=== PATIENT | female | born 1995 | race Caucasian/White ===

== ENCOUNTER 2021-08-04 15:13 | Emergency (ER) | payer BC ==
[~2021-08-04] VITALS: Ht 157.5 cm; Wt 86.3 kg
--- NOTE | 2021-08-04 15:45 | PHYS DOC ---
Past History Additional Past Medical Histor: PCOS (ELIAN GALLOWAY DO) Past Medical History: Anxiety, Depression (SANDY THOMAS MD) Past Surgical History: Tonsillectomy, Other Additional Past Surgical Histo: SINUS SURGERY X2; ADNIODECTOMY; D&C WITH POLPECTOMY ON CERVIX (ELIAN GALLOWAY DO) General Adult EDM: Chief Complaint: SUICIDAL IDEATION HPI: HPI: 26-year-old female presents with suicidal ideation. She has been having t houghts of suicide for at least several weeks. These feelings become more persistent in the last week since changing from Lexapro to another medicine. She does not have a specific plan. She has never been hospitalized in the past. She has no previous suicide attempts. She has no medical complaints at this time. Denies fever or chills. (ELIAN GALLOWAY DO) Review of Systems: Review of Systems: Constitutional: Denies fever or chills Eyes: Denies change in visual acuity HENT: Denies nasal congestion or sore throat Respiratory: Denies cough or shortness of breath Cardiovascular: Denies chest pain or edema GI: Denies abdominal pain, nausea, vomiting, bloody stools or diarrhea : Denies dysuria Musculoskeletal: Denies back pain or joint pain Integument: Denies rash Neurologic: Denies headache, focal weakness or sensory changes Endocrine: Denies polyuria or polydipsia Lymphatic: Denies swollen glands Psychiatric: Depression, suicidal ideation (ELIAN GALLOWAY DO) Allergies: Allergies: Allergies Coded Allergies Type Severity Reaction Last Updated Verified Cephalosporins Allergy Unknown 08/04/21 Yes Penicillins Allergy Unknown 08/04/21 Yes clindamycin Allergy Unknown 08/04/21 Yes (ELIAN GALLOWAY DO) Physical Exam: PE: Constitutional: Well developed, well nourished, obese, no acute distress, non- toxic appearance. [] HENT: Normocephalic, atraumatic, bilateral external ears normal, oropharynx moist, no oral exudates, nose normal. [] Eyes: PERRLA, EOMI, conjunctiva normal, no discharge. [] Neck: Normal range of motion, no tenderness, supple, no stridor. [] Cardiovascular: Heart rate regular rhythm, no murmur [] Lungs & Thorax: Bilateral breath sounds clear to auscultation [] Abdomen: Bowel sounds normal, soft, no tenderness, no masses, no pulsatile masses. [] Skin: Warm, dry, no erythema, no rash. [] Back: No tenderness, no CVA tenderness. [] Extremities: No tenderness, no cyanosis, no clubbing, ROM intact, no edema. [] Neurologic: Alert and oriented X 3, normal motor function, normal sensory function, no focal deficits noted. [] Psychologic: Affect flat, judgement normal, mood depressed. [] (ELIAN GALLOWAY DO) Current Patient Data: Vital Signs: Vital Signs Date Time Temp Pulse Resp B/P (MAP) Pulse Ox O2 Delivery O2 Flow Rate FiO2 08/04/21 15:27 99.2 145 20 143/101 (115) 98 Room Air (EILAN GALLOWAY DO) EKG: EKG: [] (ELIAN GALLOWAY DO) Radiology/Procedures: Radiology/Procedures: [] (ELIAN GALLOWAY DO) Heart Score: C/O Chest Pain: N/A Risk Factors: Risk Factors: DM, Current or recent (<one month) smoker, HTN, HLP, family history of CAD, obesity. Risk Scores: Score 0 - 3: 2.5% MACE over next 6 weeks - Discharge Home Score 4 - 6: 20.3% MACE over next 6 weeks - Admit for Clinical Observation Score 7 - 10: 72.7% MACE over next 6 weeks - Early Invasive Strategies (ELIAN GALLOWAY DO) Course & Med Decision Making: Course & Med Decision Making Pertinent Labs and Imaging studies reviewed. (See chart for details) The patient's labs are unremarkable. She is not . Urinalysis negative for infection. She is medically stable for behavioral health evaluation. Behavioral health is evaluating the patient at shift change. I am signing the patient out to Dr. Thomas at 1800 who will determine her disposition. [] (ELIAN GALLOWAY DO) Course & Med Decision Making See Dr. Galloway chart for details. See PAT exam. Pt. keep follow up with counselor and primary. Pt. released with Safety plan. Impression: 1. Suicidal ideation 2. Anxiety 3. Depression 4. Diabetes glucose 275 5. Rapid COVID screen negative (SANDY THOMAS MD) Dragon Disclaimer: Dragon Disclaimer: This electronic medical record was generated, in whole or in part, using a voice recognition dictation system. (ELIAN GALLOWAY DO) Departure Departure: Impression: Primary Impression: Suicidal ideation Referrals: MARY PLUMMER DO (PCP) [place] Disclaimer This chart was dictated in whole or in part using Voice Recognition software in a busy, high-work load, and often noisy Emergency Department environment. It may contain unintended and wholly unrecognized errors or omissions. (SANDY THOMAS MD) Dragon Disclaimer This chart was dictated in whole or in part using Voice Recognition software in a busy, high-work load, and often noisy Emergency Department environment. It may contain unintended and wholly unrecognized errors or omissions. (SANDY THOMAS MD) ELIAN GALLOWAY DO August 04, 2021 15:45 SANDY THOMAS MD August 04, 2021 18:30
[2021-08-04 16:21] LABS: BASO # 0.1 x10^3/uL (0.0-0.2); BASO % 1 % (0-3); EOS # 0.1 x10^3/uL (0.0-0.7); EOS % 1 % (0-3); HEMATOCRIT 43.9 % (36.0-47.0); LYMPH # 3.1 x10^3/uL (1.0-4.8); LYMPH % 43 % (24-48); MEAN CORPUSCULAR HEMOGLOBIN 29 pg (25-35); MEAN CORPUSCULAR HGB CONC 34 g/dL (31-37); MEAN CORPUSCULAR VOLUME 85 fL (79-100); MONO # 0.4 x10^3/uL (0.0-1.1); MONO % 6 % (0-9); NEUT # 3.6 x10^3uL (1.8-7.7); NEUT % 49 % (31-73); PLATELET COUNT 322 x10^3/uL (140-400); RED BLOOD COUNT 5.16 x10^6/uL (3.50-5.40); RED CELL DISTRIBUTION WIDTH 12.9 % (11.5-14.5); WHITE BLOOD COUNT 7.3 x10^3/uL (4.0-11.0)
[2021-08-04 16:30] LABS: CALCIUM 9.3 mg/dL (8.5-10.1); GFR 68.1; POTASSIUM 3.8 mmol/L (3.5-5.1)
[2021-08-04 16:36] LABS: ALBUMIN 3.6 g/dL (3.4-5.0); TOTAL BILIRUBIN 0.8 mg/dL (0.2-1.0); TOTAL PROTEIN 7.1 g/dL (6.4-8.2)
[2021-08-04 16:37] LABS: BACTERIA,URINE FEW /HPF (0-FEW); BARBITURATES NEG (NEG); BENZODIAZEPINES NEG (NEG); CANNABINOIDS NEG (NEG); CLARITY,URINE CLEAR; COCAINE NEG (NEG); COLOR,URINE YELLOW; GLUCOSE,URINE >=1000 mg/dL (NEG); METHADONE NEG (NEG); NITRITE,URINE NEG (NEG); OPIATES NEG (NEG); PHENCYCLIDINE NEG (NEG); RBC,URINE 0 /HPF (0-2); SQUAMOUS EPITHELIAL CELL,UR MOD /LPF; UROBILINOGEN,URINE 0.2 mg/dL (0.2 mg/dL)
[2021-08-04 16:38] LABS: AMPHETAMINE/METHAMPHETAMINE NEG (NEG)
[2021-08-04 19:00] VITALS: BP 136/88
== END 2021-08-04 19:10 | disposition home or self-care (01) ==
LOC: ER 15:13
DX: R45.851 Suicidal ideations (principal); F41.9 Anxiety disorder, unspecified; F32.9 Major depressive disorder, single episode, unspecified; E11.9 Type 2 diabetes mellitus without complications; Z20.822 Contact with and (suspected) exposure to COVID-19; Z88.1 Allergy status to other antibiotic agents; Z88.0 Allergy status to penicillin
CPT/HCPCS: 80053; 80307; 81001; 81025; 85025; 87086; 87426; 99285; C9803; U0003